=== PATIENT | male | born 1955 | race Caucasian/White ===

== ENCOUNTER 2017-09-03 23:05 | Inpatient (IN) | payer MEDICARE ==
[2017-09-03] MEDS ORDERED: ASPIRIN 81 MG TABLET, CHEWABLE PO ONE (23:27)
[2017-09-04] MEDS ORDERED: NITROGLYCERIN 5 MG (0.2 MG/HR) PATCH.TD24 TD ONE (00:18)
[2017-09-04] MEDS ORDERED: NICOTINE 21 MG/24 HR PATCH.TD24 TD ONE (00:19)
--- NOTE | 2017-09-04 00:19 | ER Document Report ---
ED General - General Chief Complaint: Chest Pain Stated Complaint: CHEST PAIN Time Seen by Provider: 09/04/17 00:07 Notes: Patient is a 62-year-old male with a past medical history of coronary disease status post CABG and multiple stents, prior CVA, tobacco abuse,'s hypertension, hyperlipidemia, who presents with chest pain radiating to his back. Patient states that his symptoms started approximately 4 hours ago and have been constant since that time. He describes it as a severe, constant, throbbing and stabbing pain to the left side of his chest that goes directly to his back. He has had similar episodes of pain in the recent past but has refused come to the emergency department per his son at the bedside for assessment. He has not had a stress test in many years. His last cardiac catheterization was in 2014. He is apparently noncompliant with his medications. Nothing improves or worsens his pain. He states this feels similar to when he has had heart attacks in the past. He has not seen his primary care doctor regarding today's concerns. Past Medical History - General Information source: Patient - Social History Smoking Status: Current Every Day Smoker Frequency of alcohol use: None Drug Abuse: None Lives with: Family Family History: Reviewed & Not Pertinent Review of Systems - Review of Systems Notes: Constitutional: Negative for fever. HENT: Negative for sore throat. Eyes: Negative for visual changes. Cardiovascular: Positive for chest pain. Respiratory: Negative for shortness of breath. Gastrointestinal: Negative for abdominal pain, vomiting or diarrhea. Genitourinary: Negative for dysuria. Musculoskeletal: Positive for upper back pain Skin: Negative for rash. Neurological: Negative for headaches, weakness or numbness. 10 point ROS negative except as marked above and in HPI. Physical Exam - Vital signs Vitals: Temp Pulse Resp BP Pulse Ox 98.0 F 95 18 232/116 H 98 09/03/17 23:40 09/03/17 23:40 09/03/17 23:40 09/03/17 23:40 09/03/17 23:40 Interpretation: Hypertensive Notes: PHYSICAL EXAMINATION: GENERAL: Appears uncomfortable but no acute distress HEAD: Atraumatic, normocephalic. EYES: Pupils equal round and reactive to light, extraocular movements intact, sclera anicteric, conjunctiva are normal. ENT: nares patent, oropharynx clear without exudates. Moderately dry mucous membranes. NECK: Normal range of motion, supple without lymphadenopathy LUNGS: Breath sounds clear to auscultation bilaterally and equal. Scattered expiratory wheezing all lung blake HEART: Regular rate and rhythm without murmurs ABDOMEN: Soft, nontender, normoactive bowel sounds. No guarding, no rebound. No masses appreciated. EXTREMITIES: Normal range of motion, no pitting or edema. No cyanosis. NEUROLOGICAL: No focal neurological deficits. Moves all extremities spontaneously and on command. PSYCH: Normal mood, normal affect. SKIN: Warm, Dry, normal turgor, no rashes or lesions noted. Course - Re-evaluation Re-evalutation: 09/04/17 00:17 Patient presents with chest pain for the past 2 hours that started abruptly on the left side of his chest radiating to his back. He was noted to be profoundly hypertensive in triage with a blood pressure of 230/116. I immediately went to assess the patient when he was brought back to room. Patient appears somewhat uncomfortable, in no overt distress. He is actively complaining of chest and back pain. I took blood pressures at the bedside and found that his right upper extremity is 184 systolic whereas his left upper extremity is 204 systolic. This 20 mmHg difference in the context of chest pain radiating to the back is extraordinarily worrisome for a possible acute aortic dissection. As soon as an IV can be placed patient will be immediately transported for an emergent CTA of the chest to exclude this diagnosis. We will not wait for labs as this is a time sensitive diagnosis. Also obtain troponin, basic metabolic panel, CBC, and continue to monitor the patient. Will reassess at regular intervals. 09/04/17 02:04 Patient has received 3 sublingual nitroglycerin but has not yet had resolution of of his chest pain. His blood pressure does remain elevated although heart rate has improved. CT was delayed as 2 IVs did blow prior to being able to be given contrast. CTA has been completed and we are waiting results. I have reviewed the CTA myself and did not see any evidence of a dissection. 09/04/17 03:19 CT has been read and does not demonstrate any evidence of a dissection. Initial troponin is normal. Patient's blood pressure remains markedly elevated and he does continues to have some mild chest pain although he notes his back pain has resolved. Will also start a nitroglycerin infusion as the patient continues to have some mild chest pain and continues to be severely hypertensive. Patient will require hospitalization for serial troponins and a stress test as an inpatient as he is high risk. 09/04/17 03:25 I discussed this case with Dr. Baker who has accepted the patient. - Vital Signs Vital signs: Temp Pulse Resp BP Pulse Ox 98.0 F 95 18 156/94 H 92 09/03/17 23:40 09/03/17 23:40 09/04/17 05:01 09/04/17 05:01 09/04/17 05:01 - Laboratory Result Diagrams: 09/04/17 00:25 09/04/17 01:15 Laboratory results interpreted by me: 09/04/17 09/04/17 09/04/17 00:25 01:15 03:45 WBC 16.3 H RDW 14.8 H Absolute Neutrophils 10.0 H Absolute Eosinophils 0.7 H Absolute Basophils 0.3 H Sodium 149.3 H Chloride 112 H Glucose 122 H Triglycerides 360 H VLDL Cholesterol 72.0 H HDL Cholesterol 32 L - Diagnostic Test Radiology reviewed: Image reviewed, Reports reviewed Radiology results interpreted by me: 09/04/17 03:20 CTA chest: No evidence of dissection - EKG Interpretation by Me Additional EKG results interpreted by me: 09/04/17 03:20 Sinus rhythm. Rate 86. No ST elevations or depressions. QTC 474. Critical Care Note - Critical Care Note Total time excluding time spent on procedures (mins): 37 Comments: Critical care time spent obtaining history from patient or surrogate, discussions with consultants, development of treatment plan with patient or surrogate, evaluation of patient's response to treatment, examination of patient , ordering and performing treatments and interventions, ordering and review of laboratory studies, re-evaluation of patient's condition, ordering and review of radiographic studies and review of old charts Discharge - Discharge Clinical Impression: Hypertensive urgency Chest pain Qualifiers: Chest pain type: unspecified Qualified Code(s): R07.9 - Chest pain, unspecified Condition: Fair Disposition: ADMITTED INPATIENT Admitting Provider: Hospitalist Unit Admitted: [facility]
[2017-09-04 00:40] LABS: ABSOLUTE BASOPHILS # (AUTO) 0.3 10^3/uL (0.0-0.2); ABSOLUTE EOSINOPHILS # (AUTO) 0.7 10^3/uL (0.0-0.6); ABSOLUTE LYMPHOCYTES (AUTO) 4.2 10^3/uL (0.5-4.7); ABSOLUTE MONOCYTES (AUTO) 1.1 10^3/uL (0.1-1.4); BASOPHILS % (AUTO) 1.8 % (0-2); EOSINOPHILS % (AUTO) 4.2 % (0-6); HEMOGLOBIN 15.4 g/dL (13.5-17.0); LYMPHOCYTES % (AUTO) 25.6 % (13-45); MEAN CORPUSCULAR HEMOGLOBIN 29.9 pg (27.0-33.4); MEAN CORPUSCULAR HGB CONC 34.9 g/dL (32.0-36.0); MEAN CORPUSCULAR VOLUME 86 fl (80-97); MONOCYTES % (AUTO) 7.1 % (3-13); RED BLOOD COUNT 5.14 10^6/uL (4.35-5.55); RED CELL DISTRIBUTION WIDTH 14.8 % (11.5-14.0); SEGMENTED NEUTROPHILS % (AUTO) 61.3 % (42-78); TOTAL CELLS COUNTED % (AUTO) 100 %; WHITE BLOOD COUNT 16.3 10^3/uL (4.0-10.5)
[2017-09-04 00:54] LABS: PLATELET COUNT 348 10^3/uL (150-450)
[2017-09-04 01:48] LABS: ANION GAP 13 (5-19); BLOOD UREA NITROGEN 18 mg/dL (7-20); CALCIUM 10.2 mg/dL (8.4-10.2); CARBON DIOXIDE 24 mmol/L (22-30); CHLORIDE 112 mmol/L (98-107); GLUCOSE 122 mg/dL (75-110); POTASSIUM 4.7 mmol/L (3.6-5.0); SODIUM 149.3 mmol/L (137-145)
[2017-09-04] MEDS: MORPHINE SULFATE 10 MG/ML INJ IV PRN ×5 (02:04→16:02)
--- NOTE | 2017-09-04 02:06 | RADIOLOGY REPORT (SQ) ---
EXAM DESCRIPTION: CTA of the chest per PE protocol with contrast. CLINICAL HISTORY: Aortic dissection. COMPARISON: None Available. TECHNIQUE: CTA of the chest obtained following the uncomplicated intravenous administration of 100 mL Isovue-370. 3-D/MIP reformatted images of the chest available for evaluation. DLP: 482.02 mGycm FINDINGS: Chest: Pulmonary arteries: Contrast bolus is adequate.No filling defects identified in the pulmonary arteries to suggest pulmonary embolus. Thyroid:No abnormalities of the visualized thyroid. Great Vessels:Great vessels have normal anatomic configuration. Thoracic Aorta: No evidence of thoracic aortic dissection. Atherosclerotic calcification of a normal caliber thoracic aorta. Heart: Prior median sternotomy. Coronary artery atherosclerosis. Lymph Nodes:No enlarged mediastinal lymph nodes identified. Esophagus:No abnormalities of the esophagus identified. Other:No additional findings. Lungs:No alveolar or interstitial airspace opacities identified. Pleura:No pleural effusion or pneumothorax. Trachea/Airways:No abnormalities of the visualized trachea or airways. Bones: Degenerative spondylosis of the thoracic spine. Dorsal generator leads partially visualized. Upper Abdomen:Limited images of the upper abdomen demonstrate no definite abnormalities of visualized portions of the liver, gallbladder, pancreas, spleen, or adrenal glands. IMPRESSION: 1. No pulmonary embolus. No evidence of thoracic aortic dissection. This exam was performed according to our departmental dose-optimization program, which includes automated exposure control, adjustment of the mA and/or kV according to patient size and/or use of iterative reconstruction technique.
[2017-09-04] MEDS ORDERED: HYDRALAZINE HCL INJ/PF 20 MG/1 ML SDV IV ONE (03:19)
[2017-09-04] MEDS ORDERED: NITROGLYCERIN/D5W 50 MG/250 ML RTUINJ IV PRN (03:23)
[2017-09-04] MEDS ORDERED: PROMETHAZINE HCL INJ 25 MG/1 ML VIAL IV PRN (03:33)
[2017-09-04] MEDS ORDERED: ALBUTEROL SULFATE 0.083% NEB 2.5 MG/3 ML AMPUL NEB PRN (03:33)
[2017-09-04] MEDS ORDERED: ACETAMINOPHEN 325 MG TABLET PO PRN (03:33)
[2017-09-04] MEDS ORDERED: ASPIRIN 81 MG TABLET, CHEWABLE PO ONE (03:40)
[2017-09-04] MEDS ORDERED: METOPROLOL TARTRATE 25 MG TABLET PO ONE (03:45)
[2017-09-04 04:10] LABS: CHOLESTEROL 194.93 mg/dL (0-200); TRIGLYCERIDES 360 mg/dL (<150)
[2017-09-04 04:20] LABS: DIRECT LDL 89 mg/dL (<100)
[2017-09-04] MEDS ORDERED: NICOTINE 14 MG/24 HR PATCH.TD24 TD ONE (04:45)
--- NOTE | 2017-09-04 07:57 | PDOC H&P ---
History of Present Illness Patient complains of: Chest pain at 8:30 PM. His blood pressure was 232/116 on admission. History of Present Illness: ALEXIA ESQUIVEL is a 62 year old male smoker with history of CAD/ME 5/CHF ( post CABG 4 in 2015 and cardiac cath with stenting in 2016 @ [facility]) , CVA 2, chronic back pain and noncompliance with medications was admitted with above-mentioned complaints. The patient describes his pain as pressure- like which started in the middle of his back and radiated through to the left side of his chest. He also had left arm heaviness while at rest. He rated his pain as 10/10 in intensity somewhat improved by ASA and Nitropaste 0.2 mg given in the ED (down to 7/ 10). The pain was associated with shortness of breath and palpitations but no nausea/vomiting, diaphoresis or syncope. It is similar to his previous MIs. He denied any leg swelling but complained of intermittent ankle swelling recently. He has two-pillow orthopnea, no PND and his exercise tolerance is limited by his back pain secondary to multiple surgeries. The patient also denied any heartburns but complained of intermittent abdominal cramping for the last 2 years. He denied any fever or chills, diarrhea, constipation or any urinary symptoms or focal deficits. In the ED, his temperature was 98.0, heart rate 95, respiratory rate 18, blood pressure 232/116 with oxygen saturation of 98% on room air. His WBC was 16.3 with hemoglobin of 15.4. His initial troponin was 0.027. A CTA of chest was done which was negative for PE or any thoracic aortic dissection. He received 325 mg aspirin 1, 4 mg IV Morphine 1 and he was switched to nitro drip. Past Medical History Medical History: Other - noncompliance with medications. Cardiac Medical History: Reports: Congestive Heart Failure, Coronary Artery Disease - post CABGx4, Myocardial Infarction - x5, Hyperlipidema, Hypertension Neurological Medical History: Reports: Ischemic CVA Past Surgical History Past Surgical History: Reports: Carotid Endarterectomy - left, Coronary Artery Bypass Graft - x4., Orthopedic Surgery - 9 back surgeries. R shoulder sx x1. L shoulder x2. Social History Smoking Status: Current Every Day Smoker Cigarettes Packs Per Day: 0.5 - 6 cigarettes a day for more than 40 years. Frequency of Alcohol Use: None Hx Recreational Drug Use: No - Advance Directive Resuscitation Status: Full Code Family History Parental Family History Reviewed: Yes - Mother: Cardiac disease and diabetes. Sister: Diabetes. Children Family History Reviewed: No Sibling(s) Family History Reviewed.: Yes Medication/Allergy Home Medications: Amlodipine Besylate [Norvasc 5 mg Tablet] 5 mg PO 09/04/17 Isosorbide Mononitrate [Isosorbide Mononitrate ER] 30 mg PO 09/04/17 Allergies/Adverse Reactions: No Known Allergies Allergy (Verified 09/04/17 06:36) Review of Systems ROS unobtainable: Other - Pertinent positives and negatives as detailed in the HPI. Physical Exam Vital Signs: Temp Pulse Resp BP Pulse Ox 98.0 F 95 21 H 196/96 H 94 09/03/17 23:40 09/03/17 23:40 09/04/17 03:00 09/04/17 02:53 09/04/17 03:00 Intake & Output 09/02/17 09/03/17 09/04/17 06:59 06:59 06:59 Weight 69.6 kg General appearance: PRESENT: no acute distress Head exam: PRESENT: atraumatic, normocephalic Eye exam: PRESENT: PERRLA Mouth exam: PRESENT: moist Teeth exam: PRESENT: poor dentation Neck exam: PRESENT: full ROM. ABSENT: JVD Respiratory exam: PRESENT: decreased breath sounds. ABSENT: rales, rhonchi, wheezes Cardiovascular exam: PRESENT: RRR, +S1, +S2 Pulses: PRESENT: normal dorsalis pedis pul GI/Abdominal exam: PRESENT: normal bowel sounds, soft. ABSENT: distended, rebound, tenderness Rectal exam: PRESENT: deferred Extremities exam: ABSENT: pedal edema Musculoskeletal exam: PRESENT: other - limited range of motion bilateral arms. Neurological exam: PRESENT: alert, altered, awake, motor sensory deficit - motor 4/5 throughout. chromic numbness bilateral bottom of feet and left hand sometimes.. ABSENT: CN II-XII grossly intact - except CNIII. Skin exam: PRESENT: dry, warm. ABSENT: erythema, rash Results Laboratory Results: 09/04/17 00:25 09/04/17 01:15 09/04/17 09/04/17 09/04/17 00:25 00:25 01:15 WBC 16.3 H RBC 5.14 Hgb 15.4 Hct 44.0 MCV 86 MCH 29.9 MCHC 34.9 RDW 14.8 H Plt Count 348 Seg Neutrophils % 61.3 Lymphocytes % 25.6 Monocytes % 7.1 Eosinophils % 4.2 Basophils % 1.8 Absolute Neutrophils 10.0 H Absolute Lymphocytes 4.2 Absolute Monocytes 1.1 Absolute Eosinophils 0.7 H Absolute Basophils 0.3 H Sodium Cancelled 149.3 H Potassium Cancelled 4.7 Chloride Cancelled 112 H Carbon Dioxide Cancelled 24 Anion Gap Cancelled 13 BUN Cancelled 18 Creatinine Cancelled 1.12 Est GFR ( Amer) Cancelled > 60 Est GFR (Non-Af Amer) Cancelled > 60 Glucose Cancelled 122 H Calcium Cancelled 10.2 09/04/17 09/04/17 00:25 01:15 Troponin I Cancelled 0.027 EKG Comments: Twelve-lead EKG: Sinus rhythm, ventricular rate 85, axis -40, QTc prolongation, poor R-wave propagation, possible LVH. No previous EKG to compare. Impressions: Chest/Abdomen CTA 09/04/17 00:16 IMPRESSION: 1. No pulmonary embolus. No evidence of thoracic aortic dissection. This exam was performed according to our departmental dose-optimization program, which includes automated exposure control, adjustment of the mA and/or kV according to patient size and/or use of iterative reconstruction technique. Assessment & Plan - Diagnosis (1) Chest pain Qualifiers: Chest pain type: unspecified Qualified Code(s): R07.9 - Chest pain, unspecified Is this a current diagnosis for this admission?: Yes Plan: In the setting of hypertensive urgency. We will continue to cycle cardiac enzymes and repeat 12-lead EKG. Will also check FLP and an echocardiogram Will continue aspirin and nitro drip and start metoprolol and lipitor. According to the patient, he had a heart cath in 2016 where he had 2 vessel disease one of which was amendable to stenting. Cardiology may need to be consulted for further recommendations. (2) Hypertensive urgency Is this a current diagnosis for this admission?: Yes Plan: secondary to noncompliance with his medications. Wll continue to monitor and adjust his blood pressure medications. He is currently on nitro drip. (3) Back pain Qualifiers: Back pain location: thoracic back pain Chronicity: acute Back pain laterality: unspecified Qualified Code(s): M54.6 - Pain in thoracic spine Is this a current diagnosis for this admission?: Yes Plan: A CAT scan angiogram of the chest was negative for any PE or thoracic aortic dissection. (4) Smoker Is this a current diagnosis for this admission?: Yes Plan: 6 cigarettes a day for many years. He does not look motivated to quit. Nicotine patch. (5) Leukocytosis Is this a current diagnosis for this admission?: Yes Plan: Unclear etiology. Will repeat CBC in a.m. - Time Time Spent: 50 to 70 Minutes - Inpatient Certification Based on my medical assessment, after consideration of the patient's comorbidities, presenting symptoms, or acuity I expect that the services needed warrant INPATIENT care.: Yes I certify that my determination is in accordance with my understanding of Medicare's requirements for reasonable and necessary INPATIENT services [42 CFR 412.3e].: Yes
--- NOTE | 2017-09-04 09:12 | EKG REPORT ---
SEVERITY:- ABNORMAL ECG - SINUS RHYTHM LVH WITH IVCD, LAD AND SECONDARY REPOL ABNRM : Confirmed by: Leesa Lopes 04-Sep-2017 09:12:15
[2017-09-04] MEDS ORDERED: NITROGLYCERIN 2% OINTMENT 1 GM PACKET TP ONE (10:00)
[2017-09-04] MEDS ORDERED: LOSARTAN POTASSIUM 50 MG TABLET PO SCH (10:00)
--- NOTE | 2017-09-04 10:34 | PDOC PROGRESS REPORT ---
Subjective Progress Note for:: 09/04/17 Subjective:: Patient was admitted last night with accelerated hypertension and chest pain he was maintained on the nitro drip EKG showed LVH with ST-T changes Troponins remained in intermediate range blood pressures now controlled on the nitro drip Patient denies chest pressure palpitations or shortness of breath Still describes some mild discomfort in the left chest wall No fever no chills no productive cough Reason For Visit: CP/HYPERTENSIVE URGENCY Physical Exam Vital Signs: Temp Pulse Resp BP Pulse Ox 98.0 F 95 19 132/81 H 96 09/03/17 23:40 09/03/17 23:40 09/04/17 10:02 09/04/17 10:02 09/04/17 10:02 He appears comfortable in no acute distress his pupils are PERRLA extraocular motor intact Neck is supple no nodes no bruits Heart regular rhythm no murmur no gallop Lungs are clear Abdomen is soft nontender Extremities are intact Neuro is nonfocal Results Laboratory Results: 09/04/17 09:11 Troponin I 0.025 Impressions: Chest/Abdomen CTA 09/04/17 00:16 IMPRESSION: 1. No pulmonary embolus. No evidence of thoracic aortic dissection. This exam was performed according to our departmental dose-optimization program, which includes automated exposure control, adjustment of the mA and/or kV according to patient size and/or use of iterative reconstruction technique. Assessment & Plan - Diagnosis (1) Chest pain Qualifiers: Chest pain type: unspecified Qualified Code(s): R07.9 - Chest pain, unspecified Is this a current diagnosis for this admission?: Yes Plan: The chest pain is somewhat atypical the cardiac enzymes remain in the intermediate range There is no evidence of an acute coronary syndrome Chest pain likely is related to the accelerated hypertension We will continue nitrates Continue beta-blockers add arbs Continue aspirin Echocardiogram is pending Patient may be a candidate for stress testing Cardiology consult was obtained (2) Hypertensive urgency Is this a current diagnosis for this admission?: Yes Plan: Switch meds to p.o. continue Nitropaste (3) Hypernatremia Is this a current diagnosis for this admission?: Yes Plan: Hydrate with D5 and half-normal saline Repeat BMP in a.m. (4) Hyperlipidemia Qualifiers: Hyperlipidemia type: unspecified Qualified Code(s): E78.5 - Hyperlipidemia , unspecified Is this a current diagnosis for this admission?: Yes Plan: Initiate Lipitor [place]-3 fatty acids - Time Time Spent with patient: Patient may be downgraded to IMCU with telemetry Time Spent with patient: 25-34 minutes - Inpatient Certification Based on my medical assessment, after consideration of the patient's comorbidities, presenting symptoms, or acuity I expect that the services needed warrant INPATIENT care.: Yes I certify that my determination is in accordance with my understanding of Medicare's requirements for reasonable and necessary INPATIENT services [42 CFR 412.3e].: Yes Medical Necessity: Need For Continuous Telemetry Monitoring, Risk of Complication if Not Cared For in Hospital
[2017-09-04] MEDS: ENOXAPARIN SODIUM INJ 40 MG/0.4 ML DISP.SYRIN SUBCUT SCH (10:36)
[2017-09-04] MEDS: METOPROLOL TARTRATE 25 MG TABLET PO SCH ×2 (10:36→21:04)
[2017-09-04] MEDS: AMLODIPINE BESYLATE 10 MG TABLET PO SCH (10:51)
[2017-09-04] MEDS: LOSARTAN POTASSIUM 50 MG TABLET PO SCH (10:51)
--- NOTE | 2017-09-04 10:51 | PDOC CONSULTATION ---
Consultation Consult Date: 09/04/17 Attending physician:: ANNETTE PRABHAKAR Consult reason:: Chest pain, severe hypertension History of Present Illness Admission Date/PCP: 09/04/17 04:17 Patient complains of: Chest pain History of Present Illness: ALEXIA ESQUIVEL is a 62 year old male smoker with history of CAD/TN 5/CHF ( post CABG 4 in 2015 and cardiac cath with stenting in 2016 @ [facility]) , CVA 2, chronic back pain and noncompliance with medications was admitted with above-mentioned complaints. The patient describes his pain as pressure- like which started in the middle of his back and radiated through to the left side of his chest. He also had left arm heaviness while at rest. He rated his pain as 10/10 in intensity somewhat improved by ASA and Nitropaste 0.2 mg given in the ED (down to 7/ 10). The pain was associated with shortness of breath and palpitations but no nausea/vomiting, diaphoresis or syncope. It is similar to his previous MIs. He denied any leg swelling but complained of intermittent ankle swelling recently. He has two-pillow orthopnea, no PND and his exercise tolerance is limited by his back pain secondary to multiple surgeries. The patient also denied any heartburns but complained of intermittent abdominal cramping for the last 2 years. He denied any fever or chills, diarrhea, constipation or any urinary symptoms or focal deficits. In the ED, his temperature was 98.0, heart rate 95, respiratory rate 18, blood pressure 232/116 with oxygen saturation of 98% on room air. His WBC was 16.3 with hemoglobin of 15.4. His initial troponin was 0.027. A CTA of chest was done which was negative for PE or any thoracic aortic dissection. He received 325 mg aspirin 1, 4 mg IV Morphine 1 and he was switched to nitro drip. This history obtained by the hospitalist was reviewed and confirmed. In addition patient told me that he has not been taking his medication for about a week. Patient is not and is being taken care of by his son. Patient has chronic back problem. He continues to smoke. Past Medical History Cardiac Medical History: Reports: Congestive Heart Failure, Coronary Artery Disease - post CABGx4, Myocardial Infarction - x5, Hyperlipidema, Hypertension Neurological Medical History: Reports: Ischemic CVA Past Surgical History Past Surgical History: Reports: Carotid Endarterectomy - left, Coronary Artery Bypass Graft - x4., Orthopedic Surgery - 9 back surgeries. R shoulder sx x1. L shoulder x2. Social History Information Source: Patient Lives with: Family Smoking Status: Current Every Day Smoker Cigarettes Packs Per Day: 0.5 - 6 cigarettes a day for more than 40 years. Frequency of Alcohol Use: None Hx Recreational Drug Use: No - Advance Directive Resuscitation Status: Full Code Surrogate healthcare decision maker:: Patient's son is the surrogate decision-maker Family History Family History: Reviewed & Not Pertinent Parental Family History Reviewed: Yes Children Family History Reviewed: Yes Sibling(s) Family History Reviewed.: Yes Medication/Allergy Home Medications: Amlodipine Besylate [Norvasc 5 mg Tablet] 5 mg PO DAILY 09/04/17 Aspirin [Aspirin EC] 162 mg PO DAILY 09/04/17 Isosorbide Mononitrate [Isosorbide Mononitrate ER] 30 mg PO DAILY 09/04/17 Allergies/Adverse Reactions: No Known Allergies Allergy (Verified 09/04/17 06:36) Review of Systems Review of Systems: Please see history of present illness and past medical history as wall. Constitutional: No fever or chills reported. Head : No recent chronic headaches, recent head injury. Eyes: No recent eye pain, diplopia, redness, discharge, acute visual changes. Ears: No recent chronic ear pain, acute hearing loss, ear discharge. Oral cavity: No recent ulcerations, bleeding, oral cavity discomfort. Neck: No recent acute neck pain reported. Hematologic: No recent easy bruising or bleeding or hematologic malignancy reported. Lymphatic: No recent lymphatic malignancy, chronic lymphadenopathy reported yet Cardiovascular system review: See history of present illness. Patient denies sustained palpitations, syncope, near syncope. Respiratory system review: Describes history of chronic smoker's cough but denies hemoptysis, blood clots in the lungs. Mild Shortness of breath on exertion Gastrointestinal system review: Negative for any recent acute or chronic abdominal pain, hematemesis, melena, recent change in bowel habits. Genitourinary system review: No recent acute or chronic hematuria, flank pain, UTI etc. reported. Skin system review: Negative for any recent abnormal bruising, no rash, no pruritus reported. Neurologic: Questionable prior history of strokes and mini strokes but denies seizure disorder. Psychologic: No history of major psychosis or major depression reported. Musculoskeletal: Minor aches and pains reported. No acute joint swelling reported. Endocrine: No recent polyuria, polydipsia, recent heat or cold intolerance. Physical Exam Vital Signs: Temp Pulse Resp BP Pulse Ox 98.0 F 95 16 137/91 H 93 09/03/17 23:40 09/03/17 23:40 09/04/17 10:33 09/04/17 10:33 09/04/17 10:33 Exam: GENERAL: well-nourished and in no acute distress. Alert and oriented x3 HEAD: Atraumatic, normocephalic. EYES: Pupils equal round and reactive to light, extraocular movements intact, sclera anicteric, conjunctiva are normal. ENT: TMs normal, nares patent, oropharynx clear without exudates. Moist mucous membranes. No oral ulcerations or bleeding gums noted NECK: supple without lymphadenopathy. Trachea is central. No cervical or axillary lymphadenopathy noted. Carotids are 2+, JVD WNL LUNGS: Respiration seems nonlabored, no significant accessory muscle action noted. Breath sounds clear to auscultation bilaterally and equal noted. No wheezes rales or rhonchi noted. No significant dullness noted on percussion. CHEST: Palpation of the chest wall shows no significant chest wall tenderness. No other significant abnormalities noted. HEART: [place] [employer], No PSH, 1/6 DEV aortic area, 1/6 coburn systolic murmur mitral area, no rubs, no gallops. ABDOMEN: Soft, no significant tenderness appreciated, normoactive bowel sounds. No guarding, no rebound. No rigidity noted . No masses appreciated. EXTREMITIES: Pedal pulses are 1-2+, no calf tenderness noted. No clubbing or cyanosis. negative pedal edema noted NEUROLOGICAL: Focused neurological exam showed no significant neurologic deficit. Normal speech, no focal weakness appreciated. PSYCH: Normal mood, normal affect. Judgment and insight within normal limits. SKIN: No significant ecchymosis, skin is noted to be warm. MUSCULOSKELETAL EXAM: No significant acute joint swelling noted. Results Laboratory Results: 09/04/17 09:11 Troponin I 0.025 EKG Comments: Sinus rhythm, abnormal Q waves inferior leads suggestive of prior inferior myocardial infarction, nonspecific T-wave inversion lateral chest leads Impressions: Chest/Abdomen CTA 09/04/17 00:16 IMPRESSION: 1. No pulmonary embolus. No evidence of thoracic aortic dissection. This exam was performed according to our departmental dose-optimization program, which includes automated exposure control, adjustment of the mA and/or kV according to patient size and/or use of iterative reconstruction technique. Assessment & Plan - Diagnosis (1) Chest pain Qualifiers: Chest pain type: unspecified Qualified Code(s): R07.9 - Chest pain, unspecified Is this a current diagnosis for this admission?: Yes (2) Coronary artery disease Qualifiers: Coronary Disease-Associated Artery/Lesion type: unspecified vessel or lesion type [place] vs. transplanted heart: [place] heart Associated angina: angina presence unspecified Qualified Code(s): I25.10 - Atherosclerotic heart disease of [place] coronary artery without angina pectoris Is this a current diagnosis for this admission?: Yes (3) Hypertensive urgency Is this a current diagnosis for this admission?: Yes (4) Hyperlipidemia Qualifiers: Hyperlipidemia type: unspecified Qualified Code(s): E78.5 - Hyperlipidemia , unspecified Is this a current diagnosis for this admission?: Yes (5) Tobacco abuse Is this a current diagnosis for this admission?: Yes - Notes Notes: Chest pain: Patient has known CAD and also has PVD as well as cerebrovascular disease. Chest pain likely from coronary artery disease. Patient's medical management will be optimized. Patient to be scheduled for a nuclear stress test. A 2D echocardiogram is also being scheduled. A EKG will be repeated today and tomorrow to look for any evolving changes. Coronary artery disease: Medical management to be optimized. Patient advised to quit smoking. Hypertensive urgency: This is coming under better control. Hyperlipidemia: Continue with high potency statin therapy. Tobacco abuse: Patient advised to quit smoking. Patient is not giving any commitment but discussed side effects of ongoing smoking. - Time Time Spent: 30 to 50 Minutes - CODE STATUS was discussed, patient remains full code. Surrogate decision-maker patient's son. Multiple medical problems were addressed. More than 50% of the time spent coordinating care, discussing management plans with involved caregivers. Management plans discussed with involved personnels. Medical decision making was of moderate to high complexity , patient's has multiple comorbidities. Medications reviewed and adjusted accordingly: Yes
[2017-09-04] MEDS ORDERED: DEXTROSE 5%-1/2 NORMAL SALINE 1,000 ML IV PRN (14:50)
--- NOTE | 2017-09-04 19:32 | XCELERA REPORT ---
[address] [place] [address] Transthoracic Echocardiogram Report Name: ALEXIA ESQUIVEL Age: 62 yrs Gender: Male : 1955 Patient Status: Inpatient Patient Location: [address] [place], [place] [address] Study Date: 09/04/2017 01:38 PM Height: 68 in Weight: 153 lb BSA: 1.8 m2 Procedure: A complete two-dimensional transthoracic echocardiogram was performed (2D, M-mode, spectral and color flow Doppler). The study was technically adequate with some images being suboptimal in quality. Reason For Study: chest pain Ordering Physician: TIFFANIE PATTON Performed By: Nena Weaver Interpretation Summary Left ventricular systolic function is borderline reduced. The Ejection Fraction estimate is 55-60% There is moderate concentric left ventricular hypertrophy. The left ventricle is grossly normal size. Doppler measurements suggest pseudonormalized left ventricular relaxation, which is associated with grade II/IV or mild to moderate diastolic dysfunction There is posterior wall hypokinesis There is basal inferior wall akinesis The right ventricular systolic function is normal. The right ventricle is grossly normal size. The left atrium is mildly dilated. The right atrium is normal. There is a mild amount of mitral regurgitation There is no mitral valve stenosis. There is no aortic valve stenosis There is a trace amount of aortic regurgitation There is a trace or physiologic amount of tricuspid regurgitation Tricuspid regurgitation jet envelope not well defined to measure RV systolic pressure accurately. The aortic root is not well visualized but is probably normal size. The inferior vena cava was not well visualized There is no pericardial effusion. MMode/2D Measurements & Calculations RVDd: 2.7 cm LVIDd: 3.6 cm FS: 32.7 % Ao root diam: 2.9 cm IVSd: 1.5 cm LVIDs: 2.4 cm EDV(Teich): 53.0 ml LVPWd: 1.5 cm ESV(Teich): 20.1 ml Ao root area: 6.7 cm2 EF(Teich): 62.1 % Doppler Measurements & Calculations MV E max wilmar: MV dec slope: Ao V2 max: LV V1 max P.7 cm/sec 151.4 cm/sec 4.2 mmHg MV A max wilmar: 214.5 cm/sec2 Ao max PG: LV V1 max: 67.7 cm/sec MV dec time: 9.2 mmHg 103.0 cm/sec MV E/A: 0.85 0.27 sec PA V2 max: PI end-d wilmar: TR max wilmar: 69.7 cm/sec 135.8 cm/sec 237.6 cm/sec PA max PG: TR max P.9 mmHg 22.6 mmHg Left Ventricle The left ventricle is grossly normal size. There is moderate concentric left ventricular hypertrophy. Left ventricular systolic function is borderline reduced. The Ejection Fraction estimate is 55-60%. Doppler measurements suggest pseudonormalized left ventricular relaxation, which is associated with grade II/IV or mild to moderate diastolic dysfunction. There is posterior wall hypokinesis. There is basal inferior wall akinesis. Right Ventricle The right ventricle is grossly normal size. There is normal right ventricular wall thickness. The right ventricular systolic function is normal. Atria The right atrium is normal. The left atrium is mildly dilated. Interarterial septum not well visualized and not well dopplered. Cannot comment on ASD/PFO presence. Mitral Valve The mitral valve leaflets are sclerotic, but show no functional abnormalities. There is no mitral valve stenosis. There is a mild amount of mitral regurgitation. Aortic Valve The aortic valve is mildly calcified. The aortic valve is trileaflet. There is no aortic valve stenosis. There is a trace amount of aortic regurgitation. Tricuspid Valve The tricuspid valve is not well visualized, but is grossly normal. There is no tricuspid stenosis. There is a trace or physiologic amount of tricuspid regurgitation. Tricuspid regurgitation jet envelope not well defined to measure RV systolic pressure accurately. Pulmonic Valve The pulmonic valve is not well visualized. Great Vessels The aortic root is not well visualized but is probably normal size. The inferior vena cava was not well visualized. Effusions There is no pericardial effusion. : TFIFANIE PATTON > Leesa Lopes
[2017-09-04] MEDS: OXYCODONE-ACETAMINOPHEN 5-325 MG TABLET PO PRN (21:03)
[2017-09-04] MEDS ORDERED: ATORVASTATIN CALCIUM 40 MG TABLET PO SCH (22:00)
[2017-09-04 22:53] LABS: ANION GAP 14 (5-19); BLOOD UREA NITROGEN 22 mg/dL (7-20); CALCIUM 9.5 mg/dL (8.4-10.2); CARBON DIOXIDE 18 mmol/L (22-30); CHLORIDE 109 mmol/L (98-107); GLUCOSE 123 mg/dL (75-110); POTASSIUM 4.3 mmol/L (3.6-5.0); SODIUM 141.2 mmol/L (137-145)
--- NOTE | 2017-09-04 23:06 | EKG REPORT ---
SEVERITY:- ABNORMAL ECG - SINUS RHYTHM MULTIPLE ATRIAL PREMATURE COMPLEXES LVH WITH IVCD, LAD AND SECONDARY REPOL ABNRM LATERAL INFARCT, AGE INDETERMINATE : Confirmed by: Leesa Lopes 04-Sep-2017 23:05:34
[2017-09-05] MEDS: OXYCODONE-ACETAMINOPHEN 5-325 MG TABLET PO PRN ×3 (01:11→09:37)
[2017-09-05] MEDS ORDERED: TIZANIDINE HCL 4 MG TABLET PO PRN (03:01)
[2017-09-05 05:15] LABS: HEMATOCRIT 40.2 % (37.9-51.0); HEMOGLOBIN 13.7 g/dL (13.5-17.0); MEAN CORPUSCULAR HEMOGLOBIN 28.9 pg (27.0-33.4); MEAN CORPUSCULAR VOLUME 85 fl (80-97); PLATELET COUNT 286 10^3/uL (150-450); RED BLOOD COUNT 4.74 10^6/uL (4.35-5.55); RED CELL DISTRIBUTION WIDTH 14.9 % (11.5-14.0); WHITE BLOOD COUNT 14.4 10^3/uL (4.0-10.5)
[2017-09-05 05:36] LABS: ANION GAP 14 (5-19); BLOOD UREA NITROGEN 25 mg/dL (7-20); CALCIUM 9.2 mg/dL (8.4-10.2); CARBON DIOXIDE 20 mmol/L (22-30); CHLORIDE 110 mmol/L (98-107); GLUCOSE 116 mg/dL (75-110); POTASSIUM 3.9 mmol/L (3.6-5.0); SODIUM 144.1 mmol/L (137-145)
[2017-09-05] MEDS: ENOXAPARIN SODIUM INJ 40 MG/0.4 ML DISP.SYRIN SUBCUT SCH (09:29)
[2017-09-05] MEDS: METOPROLOL TARTRATE 25 MG TABLET PO SCH (09:29)
[2017-09-05] MEDS: LOSARTAN POTASSIUM 50 MG TABLET PO SCH (09:36)
[2017-09-05] MEDS: AMLODIPINE BESYLATE 10 MG TABLET PO SCH (09:37)
[2017-09-05] MEDS ORDERED: ASPIRIN 325 MG TABLET, ENT COATED PO SCH (10:00)
[2017-09-05] MEDS ORDERED: NICOTINE 14 MG/24 HR PATCH.TD24 TD SCH (10:00)
--- NOTE | 2017-09-05 10:24 | EKG REPORT ---
SEVERITY:- ABNORMAL ECG - SINUS RHYTHM LVH WITH IVCD AND SECONDARY REPOL ABNRM : Confirmed by: Leesa Lopes 05-Sep-2017 10:24:26
--- NOTE | 2017-09-05 10:40 | PDOC DISCHARGE SUMMARY ---
General - Admit/Disc Date/PCP Admission Date/Primary Care Provider: 09/04/17 04:17 Discharge Date: 09/05/17 - Discharge Diagnosis (1) Chest pain Is this a current diagnosis for this admission?: Yes (2) Hypertensive urgency Is this a current diagnosis for this admission?: Yes (3) Hypernatremia Is this a current diagnosis for this admission?: Yes (4) Hyperlipidemia Is this a current diagnosis for this admission?: Yes - Additional Information Resuscitation Status: Full Code Discharge Diet: Cardiac Discharge Activity: Activity As Tolerated Prescriptions: Atorvastatin Calcium [Lipitor 40 mg Tablet] 40 mg PO QHS 30 Days #30 tablet Amlodipine Besylate 5 mg PO DAILY 30 Days #30 tab Aspirin [Ecotrin 325 mg EC Tablet] 325 mg PO DAILY 30 Days #30 tabec Losartan Potassium [Cozaar 100 mg Tablet] 100 mg PO DAILY 30 Days #30 tablet Metoprolol Succinate [Toprol Xl 25 mg Tab.sr] 25 mg PO DAILY 30 Days #30 tab.sr.24h Nicotine [Nicoderm 14 mg/24 Hr Transdermal Patch] 1 each TD DAILY 30 Days #30 patch.td24 Ranolazine [Ranexa 500 mg Tab.sr] 500 mg PO Q12 #60 tab.sr.12h Home Medications: Isosorbide Mononitrate [Isosorbide Mononitrate ER] 30 mg PO DAILY 09/04/17 Amlodipine Besylate 5 mg PO DAILY 30 Days #30 tab 09/05/17 Aspirin [Ecotrin 325 mg EC Tablet] 325 mg PO DAILY 30 Days #30 tabec 09/05/17 Atorvastatin Calcium [Lipitor 40 mg Tablet] 40 mg PO QHS 30 Days #30 tablet Losartan Potassium [Cozaar 100 mg Tablet] 100 mg PO DAILY 30 Days #30 tablet Metoprolol Succinate [Toprol Xl 25 mg Tab.sr] 25 mg PO DAILY 30 Days #30 tab.sr.24h 09/05/17 Nicotine [Nicoderm 14 mg/24 Hr Transdermal Patch] 1 each TD DAILY 30 Days #30 patch.td24 09/05/17 Ranolazine [Ranexa 500 mg Tab.sr] 500 mg PO Q12 #60 tab.sr.12h 09/05/17 History of Present Illness Patient complains of: chest pains hypertension History of Present Illness: PADMINI ESQUIVEL is a 62 year old male smoker with history of CAD/[place] 5/CHF (post CABG 4 in 2015 and cardiac cath with stenting in 2016 @ [facility]), CVA 2, chronic back pain and noncompliance with medications was admitted with above -mentioned complaints. The patient describes his pain as pressure-like which started in the middle of his back and radiated through to the left side of his chest. He also had left arm heaviness while at rest. He rated his pain as 10/ 10 in intensity somewhat improved by ASA and Nitropaste 0.2 mg given in the ED ( down to 7/ 10). The pain was associated with shortness of breath and palpitations but no nausea/vomiting, diaphoresis or syncope. It is similar to his previous MIs. He denied any leg swelling but complained of intermittent ankle swelling recently. He has two-pillow orthopnea, no PND and his exercise tolerance is limited by his back pain secondary to multiple surgeries. Hospital Course Hospital Course: (1) Chest pain; coronary artery disease The chest pain is somewhat atypical the cardiac enzymes remain in the intermediate range There is no evidence of an acute coronary syndrome Chest pain likely is related to the accelerated hypertension Patient's medications were reevaluated Arb's and beta-blockers were added Echocardiogram was performed and showed preserved systolic function at 55-60% Grade 2/6 diastolic dysfunction Posterior wall basal inferior wall akinesis, mild mitral regurgitation Patient's medical management was reevaluated We increased aspirin to 325 mg daily Ranexa was added Imdur was continued Toprol-XL was initiated Patient was referred to Dr. Lopes as an outpatient for follow-up (2) Hypertensive urgency Likely precipitated chest pain Patient initially was treated with a nitro drip He was switched to p.o. meds His medications were reevaluated At discharge his blood pressure is controlled (3) Hypernatremia Resolved (4) Hyperlipidemia Lipitor was prescribed as well as omega-3 fatty acid Physical Exam Vital Signs: Temp Pulse Resp BP Pulse Ox 98.3 F 69 16 119/69 97 09/05/17 07:25 09/05/17 08:05 09/05/17 08:05 09/05/17 07:25 09/05/17 08:05 Intake & Output 09/04/17 09/05/17 09/06/17 00:59 00:59 00:59 Intake Total 900 0 Balance 900 0 Weight 68.4 kg 70.1 kg He appears comfortable in no acute distress his pupils are PERRLA extraocular motor intact Neck is supple no nodes no bruits Heart regular rhythm no murmur no gallop Lungs are clear Abdomen is soft nontender Extremities are intact Neuro is nonfocal Results Laboratory Results: 09/05/17 04:31 09/05/17 04:31 09/04/17 09/05/17 09/05/17 22:25 04:31 04:31 WBC 14.4 H RBC 4.74 Hgb 13.7 Hct 40.2 MCV 85 MCH 28.9 MCHC 34.0 RDW 14.9 H Plt Count 286 Sodium 141.2 144.1 Potassium 4.3 3.9 Chloride 109 H 110 H Carbon Dioxide 18 L 20 L Anion Gap 14 14 BUN 22 H 25 H Creatinine 1.17 1.32 H Est GFR ( Amer) > 60 > 60 Est GFR (Non-Af Amer) > 60 55 L Glucose 123 H 116 H Calcium 9.5 9.2 Magnesium 2.0 09/04/17 09/04/17 09:11 15:53 Troponin I 0.025 0.017 Impressions: Chest/Abdomen CTA 09/04/17 00:16 IMPRESSION: 1. No pulmonary embolus. No evidence of thoracic aortic dissection. This exam was performed according to our departmental dose-optimization program, which includes automated exposure control, adjustment of the mA and/or kV according to patient size and/or use of iterative reconstruction technique. Qualifiers - * PATEINT BEING DISCHARGED WITH ANY OF THE FOLLOWING DIAGNOSIS?: No
[2017-09-05 10:50] VITALS: BP 138/86
--- NOTE | 2017-09-05 12:38 | PDOC PROGRESS REPORT ---
Subjective Progress Note for:: 09/05/17 Subjective:: Patient was scheduled for a nuclear stress test. However because of lack of IV access, patient declined to pursue it and did not want us to try to get an IV access. Patient's son in the room, understands the implication. Patient also tells me that he is not going to quit smoking. Patient seems to be doing better with gradual improvement. Pt is denying any chest arm or neck discomfort. Patient denying any PND, orthopnea. Patient denied any sustained palpitations, dizziness, syncope, near syncope. Patient denying any fever chills. Patient denying any other significant discomfort. Patient is maintaining sinus rhythm. Review of systems: Rest review of systems negative. Medications: Medications have been reviewed. Reason For Visit: CP/HYPERTENSIVE URGENCY Physical Exam Vital Signs: Temp Pulse Resp BP Pulse Ox 98.3 F 69 16 138/86 H 97 09/05/17 10:48 09/05/17 10:48 09/05/17 10:48 09/05/17 10:48 09/05/17 10:48 Intake & Output 09/04/17 09/05/17 09/06/17 06:59 06:59 06:59 Intake Total 900 Balance 900 Weight 70.1 kg Exam: GENERAL: well-nourished and in no acute distress. Alert and oriented x3 HEAD: Atraumatic, normocephalic. EYES: Pupils equal round and reactive to light, extraocular movements intact, sclera anicteric, conjunctiva are normal. ENT: TMs normal, nares patent, oropharynx clear without exudates. Moist mucous membranes. No oral ulcerations or bleeding gums noted NECK: supple without lymphadenopathy. Trachea is central. No cervical or axillary lymphadenopathy noted. Carotids are 2+, JVD WNL LUNGS: Respiration seems nonlabored, no significant accessory muscle action noted. Breath sounds clear to auscultation bilaterally and equal noted. No wheezes rales or rhonchi noted. No significant dullness noted on percussion. CHEST: Palpation of the chest wall shows no significant chest wall tenderness. 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 ABDOMEN: Soft, no significant tenderness appreciated, normoactive bowel sounds. No guarding, no rebound. No rigidity noted . No masses appreciated. EXTREMITIES: Pedal pulses are 1-2+, no calf tenderness noted. No clubbing or cyanosis. negative pedal edema noted NEUROLOGICAL: Focused neurological exam showed no significant neurologic deficit. Normal speech, no focal weakness appreciated. PSYCH: Normal mood, normal affect. Judgment and insight within normal limits. SKIN: No significant ecchymosis, skin is noted to be warm. MUSCULOSKELETAL EXAM: No significant acute joint swelling noted. Results Laboratory Results: 09/05/17 04:31 09/05/17 04:31 09/04/17 09/05/17 09/05/17 22:25 04:31 04:31 WBC 14.4 H RBC 4.74 Hgb 13.7 Hct 40.2 MCV 85 MCH 28.9 MCHC 34.0 RDW 14.9 H Plt Count 286 Sodium 141.2 144.1 Potassium 4.3 3.9 Chloride 109 H 110 H Carbon Dioxide 18 L 20 L Anion Gap 14 14 BUN 22 H 25 H Creatinine 1.17 1.32 H Est GFR ( Amer) > 60 > 60 Est GFR (Non-Af Amer) > 60 55 L Glucose 123 H 116 H Calcium 9.5 9.2 Magnesium 2.0 09/04/17 09/04/17 09:11 15:53 Troponin I 0.025 0.017 EKG Comments: Sinus rhythm with minor nonspecific T-wave inversion noted possibly related to LVH. Impressions: Chest/Abdomen CTA 09/04/17 00:16 IMPRESSION: 1. No pulmonary embolus. No evidence of thoracic aortic dissection. This exam was performed according to our departmental dose-optimization program, which includes automated exposure control, adjustment of the mA and/or kV according to patient size and/or use of iterative reconstruction technique. Assessment & Plan - Diagnosis (1) Chest pain Qualifiers: Chest pain type: unspecified Qualified Code(s): R07.9 - Chest pain, unspecified Is this a current diagnosis for this admission?: Yes (2) Coronary artery disease Qualifiers: Coronary Disease-Associated Artery/Lesion type: unspecified vessel or lesion type [place] vs. transplanted heart: [place] heart Associated angina: angina presence unspecified Qualified Code(s): I25.10 - Atherosclerotic heart disease of [place] coronary artery without angina pectoris Is this a current diagnosis for this admission?: Yes (3) Hypertensive urgency Is this a current diagnosis for this admission?: Yes (4) Hyperlipidemia Qualifiers: Hyperlipidemia type: unspecified Qualified Code(s): E78.5 - Hyperlipidemia , unspecified Is this a current diagnosis for this admission?: Yes (5) Tobacco abuse Is this a current diagnosis for this admission?: Yes - Notes Notes: Chest pain: Patient has known CAD and also has PVD as well as cerebrovascular disease. Chest pain likely from coronary artery disease. Patient's medical management will be optimized. Patient declines to pursue a stress test. Even though risk benefits were discussed and why it is indicated. 2D echo results were discussed. Patient questions were answered. Coronary artery disease: Medical management to be optimized. Patient advised to quit smoking. Hypertensive urgency: This is coming under better control. This was related to being noncompliant with medication and having run out of medications. Hyperlipidemia: Continue with high potency statin therapy. Tobacco abuse: Patient advised to quit smoking. Patient is not giving any commitment but discussed side effects of ongoing smoking. Patient today declines to give any commitment again and claims that he is going to continue to smoke. Patient was again advised against it. Patient can follow-up with me. This was advised. - Time Time with patient: Greater than 35 minutes - CODE STATUS was discussed, patient remains full code. Surrogate decision-maker unchanged. Multiple medical problems were addressed. More than 50% of the time spent coordinating care, discussing management plans with involved caregivers. Management plans discussed with involved personnels. Medical decision making was of moderate to high complexity, patient's has multiple comorbidities. Medications reviewed and adjusted accordingly: Yes
== END 2017-09-05 11:17 | disposition home or self-care (01) | DRG 305 ==
LOC: ER 23:05 → EH 09-04 04:17 → 3N 09-04 11:38
PROVIDERS: ADMIT Internal Medicine Geriatric Medicine; ATTEND Internal Medicine Geriatric Medicine
PROC: 3E0F73Z Introduction of Anti-inflammatory into Respiratory Tract, Via Natural or Artificial Opening (ICD-10-PCS; principal; 2017-09-04)
DX: I16.0 Hypertensive urgency (principal); E87.0 Hyperosmolality and hypernatremia; R07.89 Other chest pain; I25.10 Atherosclerotic heart disease of native coronary artery without angina pectoris; G89.29 Other chronic pain; F17.210 Nicotine dependence, cigarettes, uncomplicated; M54.6 Pain in thoracic spine; D72.829 Elevated white blood cell count, unspecified; I87.2 Venous insufficiency (chronic) (peripheral); I73.9 Peripheral vascular disease, unspecified; I67.9 Cerebrovascular disease, unspecified; Z79.82 Long term (current) use of aspirin; E78.5 Hyperlipidemia, unspecified; Z95.1 Presence of aortocoronary bypass graft; Z95.5 Presence of coronary angioplasty implant and graft; Z86.73 Personal history of transient ischemic attack (TIA), and cerebral infarction without residual deficits; Z91.19 Patient's noncompliance with other medical treatment and regimen; I25.2 Old myocardial infarction; Z79.899 Other long term (current) drug therapy
CPT/HCPCS: 36415; 71275; 80048; 80061; 83735; 84484; 85025; 85027; 93005; 93010; 93306; 96365; 96375; 96376; 99291; J1650; J2270; J3490